=== PATIENT | female | born 1960 | race Caucasian/White ===

== ENCOUNTER 2019-02-28 09:42 | Emergency (ER) | payer OTHER ==
[2019-02-28] MEDS: DEXAMETHASONE 10 MG/ML 1 ML INJ IM (10:32)
[2019-02-28] MEDS: ALBUTEROL 0.083% (NEB) 2.5 MG/3 ML AMP HHN (11:03)
[2019-02-28] MEDS: IPRATROPIUM (NEB) 0.5 MG/2.5 ML AMP HHN (11:03)
== END 2019-02-28 12:04 | disposition home or self-care (01) ==
LOC: FTE 09:42
DX: J20.9 Acute bronchitis, unspecified (principal); E03.9 Hypothyroidism, unspecified
CPT/HCPCS: 71045; 94644; 96372; 99284-25

== ENCOUNTER 2019-03-03 10:04 | Emergency (ER) | payer OTHER | END 2019-03-03 11:31 | disposition home or self-care (01) | LOC: FTE 10:04 | DX: J32.9 Chronic sinusitis, unspecified (principal); E03.9 Hypothyroidism, unspecified; J40 Bronchitis, not specified as acute or chronic | CPT/HCPCS: 99283; Z7502 ==